=== PATIENT | male | born 1980 | race Caucasian/White ===

== ENCOUNTER 2023-11-19 08:24 | Emergency (ER) | payer BC, SELFPAY ==
[2023-11-19 08:38] VITALS: BP 172/113; PULSE 116; RESP 18; TEMP 36.3; O2SAT 98; BMI 29.8
--- NOTE | 2023-11-19 08:54 | CT_ITS ---
Patient: BORIS KEITH Facility:?[facility] Patient ID:?[id number] Site Patient ID:?[id number] Site :?[id number] Study:?CT-Head w/o-11/19/2023 9:08:04 AM Ordering Physician:Celine Ponce Final Report: INDICATION: Dizziness TECHNIQUE: CT head without contrast. COMPARISON: None. FINDINGS: CSF spaces: Within normal limits for age. Brain parenchyma and extra-axial spaces: The interiano-white differentiation is normal. No sign of mass effect, hemorrhage, or midline shift. No extra-axial fluid collection. Skull base and calvarium: The visualized paranasal sinuses and mastoid air cells demonstrate no acute or significant findings. The visualized orbits are grossly unremarkable. No skull fractures. IMPRESSION: No evidence of acute intracranial abnormality on this unenhanced CT. Please note that all CT scans at this facility use dose modulation, iterative reconstruction, and/or weight-based dosing when appropriate to reduce radiation dose to as low as reasonably achievable. Dictated by Cruz Sutton MD @ 11/19/2023 9:23:56 AM Signed by:?Cruz Sutton MD @11/19/2023 9:23:56 AM (Electronic Signature)
[2023-11-19 08:57] VITALS: PULSE 99; O2SAT 96
--- NOTE | 2023-11-19 08:57 | ED.GENADULT ---
HPI - General Adult General Date Seen: 11/19/23 Chief complaint: Unspecified Complaint, Adult Stated complaint: feels weird Time Seen by Provider: 11/19/23 08:27 Source: patient Mode of arrival: ambulatory Limitations: no limitations History of Present Illness HPI narrative: Patient is a 43-year-old male who states he is 8 months sober from all drugs and alcohol presenting to the emergency department because I do not feel right.? [place] but does not remember a female happened there or going home. He is still not feeling right this morning and denies using any drugs or alcohol last night. His CPRS arrived this morning to pick him up to bring him to his court date but he was not feeling right and told her that she needs to come to the emergency department. States he is feeling dizzy at this time. Denies chest pain, shortness of breath, abdominal pain, headache, vision changes, diarrhea, constipation, dysuria. Does states he felt nauseated when he 1st arrived and did have an episode of emesis but is not currently feeling nauseated. Has not had any fevers that he is aware of. Nurse's after note he seemed off balance when he was walking in but was able to walk under his own power. Denies symptoms like this before. Related Data Home Medications Medication Instructions Recorded Confirmed lisdexamfetamine 70 mg capsule mg PO 11/19/23 sertraline 100 mg tablet 100 mg PO DAILY 11/19/23 11/19/23 Allergies Allergy/AdvReac Type Severity Reaction Status Date / Time No Known Drug Allergies Allergy Verified 11/19/23 08:45 Review of Systems Status of ROS: Reports: 10 or more systems reviewed and unremarkable except as noted in History and below PFSH PFS Social History Smoking Status: Never smoker Do you use any of these nicotine containing products: None Second hand tobacco smoke exposure: No How often do you have a drink containing alcohol: never How often do you have six or more drinks on one occasion: Never AUDIT-C Alcohol total score: 0 Non-prescribed substance use: denies use service: No Exam Narrative: Exam Narrative: Const: Well-nourished, Well-developed, in mild distress, diaphoretic Eyes: PERRL, no conjunctival injection, and symmetrical lids HENT: Atraumatic external nose and ears. Moist mucous membranes. Neck: Symmetric, trachea midline, No thyromegaly. CVS: Tachycardic, No murmurs or gallops. Peripheral pulses 2+ and equal in all extremities RESP: Unlabored respiratory effort. Clear to auscultation bilaterally. GI: Nontender/Nondistended, No rebound or guarding. MSK:Extremities w/o deformity, Normal Active ROM Skin: Warm, Dry. No rashes or lesions. Neuro: Normal Muscle tone, Cranial nerves 2-12 grossly intact, normal [id number], normal [id number], normal strength 5/5 upper lower extremities bilaterally, normal sensation upper and lower extremities bilaterally, normal rapid alternating movements. Psych: Awake, Alert, & Oriented x3. Appropriate mood and affect. Const: Vital Signs, click to edit/add: Vital Signs - 24 hr 11/19/23 08:38 11/19/23 08:57 11/19/23 09:00 Temperature 97.3 F L Pulse Rate 99 85 Pulse Rate [Left P ulse Oximeter] 116 H Respiratory Rate 18 Blood Pressure Blood Pressure [Ri ght Upper Arm] 172/113 H Pulse Oximetry 98 96 96 Oxygen Delivery Me thod Room Air 11/19/23 09:01 11/19/23 09:15 Temperature Pulse Rate 83 65 Pulse Rate [Left P ulse Oximeter] Respiratory Rate Blood Pressure 159/115 H Blood Pressure [Ri ght Upper Arm] Pulse Oximetry 96 97 Oxygen Delivery Me thod Course Vital Signs Vital signs: Initial Vital Signs Temperature 97.3 F L 11/19/23 08:38 Temperature Source Temporal Artery Scan 11/19/23 08:38 Pulse Rate 116 H 11/19/23 08:38 Pulse Rhythm Regular 11/19/23 08:38 Pulse Strength 3+ Normal 11/19/23 08:38 Respiratory Rate 18 11/19/23 08:38 Blood Pressure 172/113 H 11/19/23 08:38 Blood Pressure Mean 132 H 11/19/23 08:38 Blood Pressure Position Sitting 11/19/23 08:38 Pulse Oximetry 98 11/19/23 08:38 Oxygen Delivery Method Room Air 11/19/23 08:38 Vital Signs Temperature 97.3 F L 11/19/23 08:38 Pulse Rate 116 H 11/19/23 08:38 Respiratory Rate 18 11/19/23 08:38 Blood Pressure 172/113 H 11/19/23 08:38 Pulse Oximetry 98 11/19/23 08:38 Oxygen Delivery Method Room Air 11/19/23 08:38 Temperature 97.3 F L 11/19/23 08:38 Pulse Rate 65 11/19/23 09:15 Respiratory Rate 18 11/19/23 08:38 Blood Pressure 159/115 H 11/19/23 09:01 Pulse Oximetry 97 11/19/23 09:15 Oxygen Delivery Method Room Air 11/19/23 08:38 Medications Administered Medications: Discontinued Medications Generic Name Dose Route Start Last Admin Trade Name Faraz PRN Reason Stop Dose Admin Lactated Ringer's 1,000 mls @ 1,000 mls/hr 11/19/23 08:54 11/19/23 10:35 Lactated Ringers 1000 Ml IV 11/19/23 09:53 Infused .Q1H ONE Infusion Medical Decision Making MDM Narrative Medical decision making narrative: Patient is a 43-year-old male presenting for relatively vague symptoms. He states he is 8 months over the concerned he does not remember what happened last night I will do a drug and alcohol screen. Will also do a head CT for his dizziness. With his tachycardia I will do an EKG and troponin. Fluids given for possible dehydration. Also ordered CBC, CMP, COVID/flu/RSV, magnesium. Patient CBC, CMP came back showing no concerning abnormalities. ETOH level is less than 0.01%. COVID/flu/RSV is negative. CT scan of the head returned showing no concerning abnormalities as reviewed by myself and the radiologist. Patient's urine drug screen came back showing methamphetamines. He is adamant he did not take any methamphetamines. His TSH came back at less than 0.015 and a reflex T4 ordered. The reflex T4 came back at 4.19. I spoke to me about this and he states he has Graves disease but does not take his medication as not taken it for over 2 years. I explained to him the importance of taking the medication at symptoms he was having was likely a combination of the methamphetamine use and his Graves disease. He refused to accept this explanation and became angry. I explained everything else that we ordered is looking normal. He does not appear to be having thyroid storm as he is not having a fever, delirium, psychosis. While he is agitated this did not occur until I told him there was meth in his urine. His heart rate for the most part has been within normal limits. I will discharge him at this time. He was able to walk out of the department Lab Data Labs: Lab Results 11/19/23 11/19/23 11/19/23 Range/Units 08:57 09:24 09:24 WBC 6.23 (4.50-11.00) K/uL RBC 5.19 (4.30-5.90) m/uL Hgb 14.5 (13.5-17.5) gm/dL Hct 44.7 (37.0-53.0) % MCV 86 (80-100) fL MCH 28 (26-34) pg MCHC 32 (32-36) gm/dL RDW Coeff of Reyes 13.0 (11.5-15.5) % Plt Count 224 (140-440) K/uL Neut % (Auto) 43.1 (42.0-72.0) % Lymph % (Auto) 39.5 (20-44) % [place] % (Auto) 10.3 (0.0-11.0) % Eos % (Auto) 6.3 (0.0-7.0) % Baso % (Auto) 0.8 (0.0-3.0) % Neut # (Auto) 2.69 (1.7-7.0) K/uL Lymph # (Auto) 2.46 (0.90-2.90) K/uL [place] # (Auto) 0.60 (0.00-0.90) K/UL Eos # (Auto) 0.39 (0.00-0.50) K/uL Baso # (Auto) 0.05 (0.00-0.30) K/uL Abs Immat Gran (auto) 0.00 (0.00-0.30) K/uL Imm/Tot Granulo (auto) 0.0 % Sodium Cancelled 142 Potassium Cancelled Chloride Carbon Dioxide Anion Gap BUN Creatinine Estimated Creat Clear Estimated GFR Glucose Calcium Magnesium (1.5-2.6) mg/dL Total Bilirubin AST ALT Alkaline Phosphatase Troponin I (0.01-0.04) ng/mL Total Protein Albumin TSH (0.270-4.200) uIU/mL Free T4 (0.70-1.85) ng/dL Urine Opiates Screen Negative (Negative) Ur Oxycodone Screen Negative (Negative) Urine Methadone Screen Negative (Negative) Ur Barbiturates Screen Negative (Negative) U Tricyclic Antidepress Negative (Negative) Ur Phencyclidine Scrn Negative (Negative) Ur Amphetamines Screen POSITIVE A (Negative) U Methamphetamines Scrn POSITIVE A (Negative) U Benzodiazepines Scrn Negative (Negative) Urine Cocaine Screen Negative (Negative) U Marijuana (THC) Screen Negative (Negative) Ur Drug Screen Comment See Note Ethyl Alcohol (0.01-0.03) % SARS-CoV-2 (PCR) (Negative) Influenza Type A (PCR) (Negative) Influenza Type B (PCR) (Negative) RSV (PCR) (Negative) 11/19/23 11/19/23 11/19/23 Range/Units 09:24 09:24 09:24 WBC (4.50-11.00) K/uL RBC (4.30-5.90) m/uL Hgb (13.5-17.5) gm/dL Hct (37.0-53.0) % MCV (80-100) fL MCH (26-34) pg MCHC (32-36) gm/dL RDW Coeff of Reyes (11.5-15.5) % Plt Count (140-440) K/uL Neut % (Auto) (42.0-72.0) % Lymph % (Auto) (20-44) % [place] % (Auto) (0.0-11.0) % Eos % (Auto) (0.0-7.0) % Baso % (Auto) (0.0-3.0) % Neut # (Auto) (1.7-7.0) K/uL Lymph # (Auto) (0.90-2.90) K/uL [place] # (Auto) (0.00-0.90) K/UL Eos # (Auto) (0.00-0.50) K/uL Baso # (Auto) (0.00-0.30) K/uL Abs Immat Gran (auto) (0.00-0.30) K/uL Imm/Tot Granulo (auto) % Sodium Potassium 3.8 Chloride Cancelled 105 Carbon Dioxide Cancelled 32 Anion Gap Cancelled BUN Creatinine Estimated Creat Clear Estimated GFR Glucose Calcium Magnesium (1.5-2.6) mg/dL Total Bilirubin AST ALT Alkaline Phosphatase Troponin I (0.01-0.04) ng/mL Total Protein Albumin TSH (0.270-4.200) uIU/mL Free T4 (0.70-1.85) ng/dL Urine Opiates Screen (Negative) Ur Oxycodone Screen (Negative) Urine Methadone Screen (Negative) Ur Barbiturates Screen (Negative) U Tricyclic Antidepress (Negative) Ur Phencyclidine Scrn (Negative) Ur Amphetamines Screen (Negative) U Methamphetamines Scrn (Negative) U Benzodiazepines Scrn (Negative) Urine Cocaine Screen (Negative) U Marijuana (THC) Screen (Negative) Ur Drug Screen Comment Ethyl Alcohol (0.01-0.03) % SARS-CoV-2 (PCR) (Negative) Influenza Type A (PCR) (Negative) Influenza Type B (PCR) (Negative) RSV (PCR) (Negative) 11/19/23 11/19/23 11/19/23 Range/Units 09:24 09:24 09:24 WBC (4.50-11.00) K/uL RBC (4.30-5.90) m/uL Hgb (13.5-17.5) gm/dL Hct (37.0-53.0) % MCV (80-100) fL MCH (26-34) pg MCHC (32-36) gm/dL RDW Coeff of Reyes (11.5-15.5) % Plt Count (140-440) K/uL Neut % (Auto) (42.0-72.0) % Lymph % (Auto) (20-44) % [place] % (Auto) (0.0-11.0) % Eos % (Auto) (0.0-7.0) % Baso % (Auto) (0.0-3.0) % Neut # (Auto) (1.7-7.0) K/uL Lymph # (Auto) (0.90-2.90) K/uL [place] # (Auto) (0.00-0.90) K/UL Eos # (Auto) (0.00-0.50) K/uL Baso # (Auto) (0.00-0.30) K/uL Abs Immat Gran (auto) (0.00-0.30) K/uL Imm/Tot Granulo (auto) % Sodium Potassium Chloride Carbon Dioxide Anion Gap 5 L BUN Cancelled 13 Creatinine Cancelled 0.6 Estimated Creat Clear Cancelled Estimated GFR Glucose Calcium Magnesium (1.5-2.6) mg/dL Total Bilirubin AST ALT Alkaline Phosphatase Troponin I (0.01-0.04) ng/mL Total Protein Albumin TSH (0.270-4.200) uIU/mL Free T4 (0.70-1.85) ng/dL Urine Opiates Screen (Negative) Ur Oxycodone Screen (Negative) Urine Methadone Screen (Negative) Ur Barbiturates Screen (Negative) U Tricyclic Antidepress (Negative) Ur Phencyclidine Scrn (Negative) Ur Amphetamines Screen (Negative) U Methamphetamines Scrn (Negative) U Benzodiazepines Scrn (Negative) Urine Cocaine Screen (Negative) U Marijuana (THC) Screen (Negative) Ur Drug Screen Comment Ethyl Alcohol (0.01-0.03) % SARS-CoV-2 (PCR) (Negative) Influenza Type A (PCR) (Negative) Influenza Type B (PCR) (Negative) RSV (PCR) (Negative) 11/19/23 11/19/23 11/19/23 Range/Units 09:24 09:24 09:24 WBC (4.50-11.00) K/uL RBC (4.30-5.90) m/uL Hgb (13.5-17.5) gm/dL Hct (37.0-53.0) % MCV (80-100) fL MCH (26-34) pg MCHC (32-36) gm/dL RDW Coeff of Reyes (11.5-15.5) % Plt Count (140-440) K/uL Neut % (Auto) (42.0-72.0) % Lymph % (Auto) (20-44) % [place] % (Auto) (0.0-11.0) % Eos % (Auto) (0.0-7.0) % Baso % (Auto) (0.0-3.0) % Neut # (Auto) (1.7-7.0) K/uL Lymph # (Auto) (0.90-2.90) K/uL [place] # (Auto) (0.00-0.90) K/UL Eos # (Auto) (0.00-0.50) K/uL Baso # (Auto) (0.00-0.30) K/uL Abs Immat Gran (auto) (0.00-0.30) K/uL Imm/Tot Granulo (auto) % Sodium Potassium Chloride Carbon Dioxide Anion Gap BUN Creatinine Estimated Creat Clear 177.83 Estimated GFR Cancelled 124 Glucose Cancelled 96 Calcium Cancelled Magnesium (1.5-2.6) mg/dL Total Bilirubin AST ALT Alkaline Phosphatase Troponin I (0.01-0.04) ng/mL Total Protein Albumin TSH (0.270-4.200) uIU/mL Free T4 (0.70-1.85) ng/dL Urine Opiates Screen (Negative) Ur Oxycodone Screen (Negative) Urine Methadone Screen (Negative) Ur Barbiturates Screen (Negative) U Tricyclic Antidepress (Negative) Ur Phencyclidine Scrn (Negative) Ur Amphetamines Screen (Negative) U Methamphetamines Scrn (Negative) U Benzodiazepines Scrn (Negative) Urine Cocaine Screen (Negative) U Marijuana (THC) Screen (Negative) Ur Drug Screen Comment Ethyl Alcohol (0.01-0.03) % SARS-CoV-2 (PCR) (Negative) Influenza Type A (PCR) (Negative) Influenza Type B (PCR) (Negative) RSV (PCR) (Negative) 11/19/23 11/19/23 11/19/23 Range/Units 09:24 09:24 09:24 WBC (4.50-11.00) K/uL RBC (4.30-5.90) m/uL Hgb (13.5-17.5) gm/dL Hct (37.0-53.0) % MCV (80-100) fL MCH (26-34) pg MCHC (32-36) gm/dL RDW Coeff of Reyes (11.5-15.5) % Plt Count (140-440) K/uL Neut % (Auto) (42.0-72.0) % Lymph % (Auto) (20-44) % [place] % (Auto) (0.0-11.0) % Eos % (Auto) (0.0-7.0) % Baso % (Auto) (0.0-3.0) % Neut # (Auto) (1.7-7.0) K/uL Lymph # (Auto) (0.90-2.90) K/uL [place] # (Auto) (0.00-0.90) K/UL Eos # (Auto) (0.00-0.50) K/uL Baso # (Auto) (0.00-0.30) K/uL Abs Immat Gran (auto) (0.00-0.30) K/uL Imm/Tot Granulo (auto) % Sodium Potassium Chloride Carbon Dioxide Anion Gap BUN Creatinine Estimated Creat Clear Estimated GFR Glucose Calcium 9.2 Magnesium 1.8 (1.5-2.6) mg/dL Total Bilirubin Cancelled 0.4 AST Cancelled 43 H ALT Cancelled Alkaline Phosphatase Troponin I (0.01-0.04) ng/mL Total Protein Albumin TSH (0.270-4.200) uIU/mL Free T4 (0.70-1.85) ng/dL Urine Opiates Screen (Negative) Ur Oxycodone Screen (Negative) Urine Methadone Screen (Negative) Ur Barbiturates Screen (Negative) U Tricyclic Antidepress (Negative) Ur Phencyclidine Scrn (Negative) Ur Amphetamines Screen (Negative) U Methamphetamines Scrn (Negative) U Benzodiazepines Scrn (Negative) Urine Cocaine Screen (Negative) U Marijuana (THC) Screen (Negative) Ur Drug Screen Comment Ethyl Alcohol (0.01-0.03) % SARS-CoV-2 (PCR) (Negative) Influenza Type A (PCR) (Negative) Influenza Type B (PCR) (Negative) RSV (PCR) (Negative) 11/19/23 11/19/23 11/19/23 Range/Units 09:24 09:24 09:24 WBC (4.50-11.00) K/uL RBC (4.30-5.90) m/uL Hgb (13.5-17.5) gm/dL Hct (37.0-53.0) % MCV (80-100) fL MCH (26-34) pg MCHC (32-36) gm/dL RDW Coeff of Reyes (11.5-15.5) % Plt Count (140-440) K/uL Neut % (Auto) (42.0-72.0) % Lymph % (Auto) (20-44) % [place] % (Auto) (0.0-11.0) % Eos % (Auto) (0.0-7.0) % Baso % (Auto) (0.0-3.0) % Neut # (Auto) (1.7-7.0) K/uL Lymph # (Auto) (0.90-2.90) K/uL [place] # (Auto) (0.00-0.90) K/UL Eos # (Auto) (0.00-0.50) K/uL Baso # (Auto) (0.00-0.30) K/uL Abs Immat Gran (auto) (0.00-0.30) K/uL Imm/Tot Granulo (auto) % Sodium Potassium Chloride Carbon Dioxide Anion Gap BUN Creatinine Estimated Creat Clear Estimated GFR Glucose Calcium Magnesium (1.5-2.6) mg/dL Total Bilirubin AST ALT 54 H Alkaline Phosphatase Cancelled 61 Troponin I 0.01 (0.01-0.04) ng/mL Total Protein Cancelled 7.0 Albumin Cancelled TSH (0.270-4.200) uIU/mL Free T4 (0.70-1.85) ng/dL Urine Opiates Screen (Negative) Ur Oxycodone Screen (Negative) Urine Methadone Screen (Negative) Ur Barbiturates Screen (Negative) U Tricyclic Antidepress (Negative) Ur Phencyclidine Scrn (Negative) Ur Amphetamines Screen (Negative) U Methamphetamines Scrn (Negative) U Benzodiazepines Scrn (Negative) Urine Cocaine Screen (Negative) U Marijuana (THC) Screen (Negative) Ur Drug Screen Comment Ethyl Alcohol (0.01-0.03) % SARS-CoV-2 (PCR) (Negative) Influenza Type A (PCR) (Negative) Influenza Type B (PCR) (Negative) RSV (PCR) (Negative) 11/19/23 11/19/23 Range/Units 09:24 09:24 WBC (4.50-11.00) K/uL RBC (4.30-5.90) m/uL Hgb (13.5-17.5) gm/dL Hct (37.0-53.0) % MCV (80-100) fL MCH (26-34) pg MCHC (32-36) gm/dL RDW Coeff of Reyes (11.5-15.5) % Plt Count (140-440) K/uL Neut % (Auto) (42.0-72.0) % Lymph % (Auto) (20-44) % [place] % (Auto) (0.0-11.0) % Eos % (Auto) (0.0-7.0) % Baso % (Auto) (0.0-3.0) % Neut # (Auto) (1.7-7.0) K/uL Lymph # (Auto) (0.90-2.90) K/uL [place] # (Auto) (0.00-0.90) K/UL Eos # (Auto) (0.00-0.50) K/uL Baso # (Auto) (0.00-0.30) K/uL Abs Immat Gran (auto) (0.00-0.30) K/uL Imm/Tot Granulo (auto) % Sodium Potassium Chloride Carbon Dioxide Anion Gap BUN Creatinine Estimated Creat Clear Estimated GFR Glucose Calcium Magnesium (1.5-2.6) mg/dL Total Bilirubin AST ALT Alkaline Phosphatase Troponin I (0.01-0.04) ng/mL Total Protein Albumin 4.0 TSH < 0.015 L (0.270-4.200) uIU/mL Free T4 4.19 H (0.70-1.85) ng/dL Urine Opiates Screen (Negative) Ur Oxycodone Screen (Negative) Urine Methadone Screen (Negative) Ur Barbiturates Screen (Negative) U Tricyclic Antidepress (Negative) Ur Phencyclidine Scrn (Negative) Ur Amphetamines Screen (Negative) U Methamphetamines Scrn (Negative) U Benzodiazepines Scrn (Negative) Urine Cocaine Screen (Negative) U Marijuana (THC) Screen (Negative) Ur Drug Screen Comment Ethyl Alcohol < 0.01 L Cancelled (0.01-0.03) % SARS-CoV-2 (PCR) Negative SARS-CoV-2 (Negative) Influenza Type A (PCR) Negative PCR FLU A (Negative) Influenza Type B (PCR) Negative PCR FLU B (Negative) RSV (PCR) Negative PCR RSV (Negative) Imaging Data CT scan - head: Attestation: I have reviewed the pertinent imaging results. Radiologist's impression: No evidence of acute intracranial abnormality on this unenhanced CT. Please note that all CT scans at this facility use dose modulation, iterative reconstruction, and/or weight-based dosing when appropriate to reduce radiation dose to as low as reasonably achievable. Dictated by Cruz Sutton MD @ 11/19/2023 9:23:56 AM ECG Data Attestation: I personally reviewed and interpreted this ECG as follows: Prior ECG tracings: not available for review Interpretation: Normal sinus rhythm with a rate of 90 beats per minute, normal intervals, normal axis, no ST or T-wave abnormalities Discharge Plan Discharge Clinical Impression: Drug abuse, Hyperthyroidism Patient Disposition: Home, Self-Care Condition: Improved Instructions: Methamphetamine Use Disorder (ED), Graves Disease (ED) Additional Instructions: Your symptoms are very likely an exacerbation of your Graves disease secondary to methamphetamine use. It is extremely important that he start taking your medicine for Graves disease. Prescriptions: No Action sertraline 100 mg tablet 100 mg PO DAILY lisdexamfetamine 70 mg capsule PO Follow Up/Referrals: Alley Corado MD [Primary Care Provider] - Stand Alone Forms: [facility] Info Instructions
[2023-11-19 09:00] VITALS: PULSE 85; O2SAT 96
[2023-11-19] MEDS: LACTATED RINGERS 1000 ML 1,000 ML IV (09:00)
[2023-11-19 09:01] VITALS: BP 159/115; PULSE 83; O2SAT 96
[2023-11-19 09:15] VITALS: PULSE 65; O2SAT 97
[2023-11-19 09:33] LABS: Basophils Absolute Auto 0.05 K/uL (0.00-0.30); Basophils Percent Auto 0.8 % (0.0-3.0); Eosinophils Absolute Auto 0.39 K/uL (0.00-0.50); Eosinophils Percent Auto 6.3 % (0.0-7.0); Hematocrit 44.7 % (37.0-53.0); Hemoglobin* 14.5 gm/dL (13.5-17.5); Lymphocytes Absolute Auto 2.46 K/uL (0.90-2.90); Lymphocytes Percent Auto 39.5 % (20-44); Mean Corpuscular HGB Conc 32 gm/dL (32-36); Mean Corpuscular Hemoglobin 28 pg (26-34); Mean Corpuscular Volume 86 fL (80-100); Monocytes Percent Auto 10.3 % (0.0-11.0); Neutrophils Absolute Auto 2.69 K/uL (1.7-7.0); Neutrophils Percent Auto 43.1 % (42.0-72.0); Platelet Count* 224 K/uL (140-440); Red Blood Count 5.19 m/uL (4.30-5.90); White Blood Count* 6.23 K/uL (4.50-11.00)
[2023-11-19 09:37] LABS: Slide Review Reflex No
[2023-11-19 09:45] LABS: Chloride* 105 mmol/L (96-114); Potassium* 3.8 mmol/L (3.6-5.1); Sodium* 142 mmol/L (135-149)
[2023-11-19 09:47] LABS: Alkaline Phosphatase* 61 U/L (40-150); Anion Gap 5 mEq/L (7-15); Aspartate Amino Transferase* 43 U/L (12-35); Bilirubin Total* 0.4 mg/dL (0.1-1.5); Carbon Dioxide* 32 mmol/L (20-32); Creatinine* 0.6 mg/dL (0.5-1.5); Est. Creatinine Clearance* 177.83; Estimated Glomerular Filt Rate 124 ml/min
[2023-11-19 09:48] LABS: Alanine Aminotransferase* 54 U/L (4-50); Blood Urea Nitrogen* 13 mg/dL (5-24); Calcium* 9.2 mg/dL (8.4-10.6); Glucose* 96 mg/dL (60-115); Magnesium* 1.8 mg/dL (1.5-2.6)
[2023-11-19 09:50] LABS: Ethanol* < 0.01 % (0.01-0.03)
[2023-11-19 09:59] LABS: Troponin I* 0.01 ng/mL (0.01-0.04)
[2023-11-19 10:11] LABS: PCR FLU A Negative PCR FLU A (Negative); PCR FLU B Negative PCR FLU B (Negative); PCR RSV Negative PCR RSV (Negative); SARS PCR* Negative SARS-CoV-2 (Negative)
[2023-11-19 10:43] LABS: Amphetamine Screen Urine POSITIVE (Negative); Barbiturate Screen Urine Negative (Negative); Benzodiazepines Screen Urine Negative (Negative); Cannabinoid Screen Urine Negative (Negative); Cocaine Screen Urine Negative (Negative); Methadone Screen Urine Negative (Negative); Methamphetamines Screen Urine POSITIVE (Negative); Opiate Screen Urine Negative (Negative); Oxycodone Screen Urine Negative (Negative); Phencyclidine Screen Urine Negative (Negative); Tricyclic Antidepressant Urine Negative (Negative)
[2023-11-19 10:46] LABS: TSH With Reflex to FT4* < 0.015 uIU/mL (0.270-4.200)
[2023-11-19 11:21] LABS: Free T4 Free Thyroxine* 4.19 ng/dL (0.70-1.85)
== END 2023-11-19 11:47 | disposition home or self-care (01) ==
PROVIDERS: Emergency Provider Student in an Organized Health Care Education/Training Program; PCP Family Medicine
DX: F19.10 Other psychoactive substance abuse, uncomplicated (principal); E03.9 Hypothyroidism, unspecified
CPT/HCPCS: 36415; 70450; 80053; 80306; 82077; 83735; 84439; 84443; 84484; 85025; 87631; 93005; 99283; 99284; 99285; J7120

== ENCOUNTER 2024-02-02 15:03 | Outpatient (CLI) | payer BC, SELFPAY | END 2024-02-02 15:04 | disposition home or self-care (01) | LOC: NFLDUCREF 15:04 | PROVIDERS: PCP Family Medicine; Visit Provider Nurse Practitioner | DX: L02.91 Cutaneous abscess, unspecified (principal) | CPT/HCPCS: 87070; 87186 ==